=== PATIENT | male | born 1960 | race Caucasian/White ===

== ENCOUNTER 2018-02-15 18:02 | Emergency (ER) | payer OTHER ==
[2018-02-15 18:30] VITALS: TEMP 98.7
--- NOTE | 2018-02-15 18:34 | RAD ---
EXAM DESCRIPTION: Wrist,Right 3 Views CLINICAL HISTORY: 57 years Male, fall with diffuse pain COMPARISON: None. Findings/impression: Mildly comminuted distal radius fracture. Ulnar styloid fracture. Radial carpal alignment is maintained. Regional soft tissue swelling. Electronically signed by: Alexsander Guardado DO 02/15/2018 6:33 PM [facility]
[2018-02-15] MEDS ORDERED: HYDROcodone 7.5MG/APAP 325MG 1 EA TAB PO ONE (18:40)
--- NOTE | 2018-02-15 18:42 | ED.PDOC ---
History of Present Illness - General Chief Complaint: Upper Extremity Injury Stated Complaint: R wrist injury Time Seen by Provider: 02/15/18 18:12 Source: patient Exam Limitations: no limitations - History of Present Illness Initial Comments: the patient's 57-year-old male emergency room secondary to pain in his right wrist and hand after a fall. He tripped going backwards and tried to catch himself. No laceration. No gross deformity. He does appear to be neurovascularly intact. Pain is diffuse around the wrist. No other injuries. Timing/Duration: unsure Severity: moderate Improving Factors: immobilization Worsening Factors: movement Associated Symptoms: denies symptoms Allergies/Adverse Reactions: Allergies NO KNOWN ALLERGY Allergy (Verified 02/15/18 18:25) Home Medications: Ambulatory Orders Tramadol HCl 50 mg PO Q8HR PRN #30 tab 02/15/18 Review of Systems - Review of Systems Constitutional: States: no symptoms reported EENTM: States: no symptoms reported Respiratory: States: no symptoms reported Cardiology: States: no symptoms reported Gastrointestinal/Abdominal: States: no symptoms reported Genitourinary: States: no symptoms reported Musculoskeletal: States: see HPI Skin: States: no symptoms reported Neurological: States: no symptoms reported Endocrine: States: no symptoms reported All other Systems: No Change from Baseline Past Medical History (General) - Patient Medical History Hx Stroke: No Hx Asthma: No - Seasonal allergies Hx Congestive Heart Failure: No Hx Hypertension: Yes Hx Thyroid Disease: Yes Hx Diabetes: No - Vaccination History Hx Influenza Vaccination: Yes - 2017 Hx Pneumococcal Vaccination: Yes - Social History Hx Tobacco Use: No Family Medical History - Family History Father Living Status: Age at (years of age): 65 Cause of : Stomach CA Hx Family Asthma: Yes Hx Family Cancer: Yes - Stomach Physical Exam - Physical Exam General Appearance: Alert, No apparent distress Ears, Nose, Throat: hearing grossly normal Neck: full range of motion Respiratory: no respiratory distress, no accessory muscle use Cardiovascular/Chest: normal peripheral pulses, no edema Peripheral Pulses: radial,right: 2+, radial,left: 2+ Rectal Exam: deferred Back Exam: normal inspection Extremity: no pedal edema, normal capillary refill, other - normal passive range of motion of the wrist. 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 He does appear to have sustained a mildly comminuted distal radius fracture on the right. I do not see that extends into the joint space and alignment appears good. He also has a mild ulnar styloid fracture. The patient was placed in a short arm splint with a sling. He does need follow-up with his primary care doctor towards the middle of next week for probably a repeat x-ray to confirm that he has maintained alignment and subsequently have a short arm cast placed with a sling or long arm cast at that time,depending upon which seems more appropriate. The patient will be written for tramadol for pain. He can additionally use ibuprofen. ER warnings were given. Departure - Departure Clinical Impression: Distal radius fracture, right Qualifiers: Encounter type: initial encounter Fracture type: closed Fracture morphology: Colles' Qualified Code(s): S52.531A - Colles' fracture of right radius, initial encounter for closed fracture Disposition: Discharge to Home or Self Care Condition: Fair Departure Forms: ED Discharge - Pt. Copy, Patient Portal Self Enrollment Instructions: Wrist Fracture (DC) Diet: regular diet Activity: no pushing/pulling with affected limb Referrals: RASHEED OLVERA [Primary Care Provider] - 1-2 Weeks Prescriptions: Tramadol HCl 50 mg PO Q8HR PRN #30 tab PRN Reason: Moderate Pain Home Medications: Ambulatory Orders Tramadol HCl 50 mg PO Q8HR PRN #30 tab 02/15/18 Additional Instructions: the patient a 57-year-old male presenting to the emergency room after having fallen and tried to catch himself with his right hand. He does appear to have sustained a mildly comminuted distal radius fracture on the right. I do not see that extends into the joint space and alignment appears good. He also has a mild ulnar styloid fracture. The patient was placed in a short arm splint with a sling. He does need follow-up with his primary care doctor towards the middle of next week for probably a repeat x-ray to confirm that he has maintained alignment and subsequently have a short arm cast placed with a sling or long arm cast at that time,depending upon which seems more appropriate. The patient will be written for tramadol for pain. He can additionally use ibuprofen. ER warnings were given.
[2018-02-15 19:05] VITALS: BP 121/77; O2SAT 96
== END 2018-02-15 19:05 | disposition home or self-care (01) ==
LOC: ER 18:02
DX: S52.501A Unspecified fracture of the lower end of right radius, initial encounter for closed fracture (principal); S52.611A Displaced fracture of right ulna styloid process, initial encounter for closed fracture; W01.0XXA Fall on same level from slipping, tripping and stumbling without subsequent striking against object, initial encounter